=== PATIENT | female | born 1950 | race African-American/Black ===

== ENCOUNTER 2017-03-11 13:21 | Inpatient (IN) | payer OTHER, MEDICARE ==
[~2017-03-11] VITALS: Ht 165.1 cm; Wt 86.9 kg
[~2017-03-11 13:21] MED LIST: ASPI325T PO; ATOR80TA41 PO; CLOP75 PO; FLUT1INH INH; HYDR-3533 PO; LACT PO; LEVO.025 PO; METO50TA PO; TRAM50 PO; Z.0.WALKERFRONT
[2017-03-11 13:24] VITALS: BP 141/65; PULSE 98; RESP 12; TEMP 98.4; O2SAT 99
[2017-03-11 14:11] LABS: AUTOMATED NEUTROPHIL # 11.7 TH/MM3 (1.8-7.7); BASOPHIL # 0.1 TH/MM3 (0-0.2); BASOPHIL % 0.5 % (0.0-2.0); EOSINOPHIL # 0.2 TH/MM3 (0-0.4); EOSINOPHIL % 1.1 % (0.0-4.0); HEMATOCRIT 49.1 % (35.0-46.0); HEMO FLAGS DIFF FINAL; LYMPHOCYTE # 3.2 TH/MM3 (1.0-4.8); MEAN CELL VOLUME 70.1 FL (80.0-100.0); MEAN CORPUSCULAR HEMOGLOBIN 22.5 PG (27.0-34.0); MEAN CORPUSCULAR HGB CONC 32.1 % (32.0-36.0); MONO % 6.1 % (0.0-8.0); NEUT % 72.3 % (16.0-70.0); PLATELET COUNT 236 TH/MM3 (150-450); RED CELL DISTRIBUTION WIDTH 15.2 % (11.6-17.2); WHITE BLOOD COUNT 16.3 TH/MM3 (4.0-11.0)
--- NOTE | 2017-03-11 14:13 | RADRPT ---
EXAM DATE/TIME: 03/11/2017 14:01 [facility] COMPARISON: CHEST SINGLE AP, October 12, 2015, 12:45. INDICATIONS : Chest pain. Vomiting, cough and diarrhea. MEDICAL HISTORY : Cardiovascular disease SURGICAL HISTORY : Cardiac stents ENCOUNTER: Initial ACUITY: 2 days PAIN SCORE: 7/10 LOCATION: Bilateral chest FINDINGS: PA and lateral views of the chest demonstrate the lungs to be symmetrically aerated without evidence of mass, infiltrate or effusion. The cardiomediastinal contours are unremarkable. Osseous structure s are intact. CONCLUSION: No acute disease. Jorge Lama MD on March 11, 2017 at 14:11 Board Certified Radiologist. This report was verified electronically.
[2017-03-11 14:20] LABS: PROTHROMBIN TIME - PATIENT 11.5 SEC (9.8-11.6)
[2017-03-11 14:27] LABS: ANION GAP 11 MEQ/L (5-15); AST (GOT) 21 U/L (15-37); BICARBONATE 21.2 MEQ/L (21.0-32.0); BLOOD UREA NITROGEN 11 MG/DL (7-18); CHLORIDE 106 MEQ/L (98-107); GLOMERULAR FILTRATION RATE 32 ML/MIN (>89); MAGNESIUM 2.1 MG/DL (1.5-2.5); POTASSIUM 3.3 MEQ/L (3.5-5.1); SODIUM (NA) 138 MEQ/L (136-145)
[2017-03-11 14:30] LABS: ALKALINE PHOSPHATASE 101 U/L (45-117); ALT (GPT) 32 U/L (10-53); CREATINE KINASE 125 U/L (26-192); TOTAL BILIRUBIN ADULT 1.2 MG/DL (0.2-1.0)
[2017-03-11 15:00] LABS: CKMB 0.6 NG/ML (0.5-3.6)
[2017-03-11 15:13] VITALS: BP 89/50; PULSE 85; RESP 18; O2SAT 98
[2017-03-11] MEDS ORDERED: SODIUM CHLOR 0.9% 1000 ML INJ 1,000 ML IV SCH ×3 (15:17→16:40)
[2017-03-11] MEDS ORDERED: MORPHINE SULFATE 4 MG/ML INJ IV PUSH ONE (15:30)
[2017-03-11] MEDS ORDERED: ONDANSETRON HCL 4 MG/2 ML VIAL IVP ONE (15:30)
[2017-03-11] MEDS ORDERED: FAMOTIDINE 20 MG/2 ML VIAL IV PUSH ONE (15:45)
[2017-03-11] MEDS ORDERED: PANTOPRAZOLE SODIUM 40 MG VIAL IVP ONE (15:45)
--- NOTE | 2017-03-11 16:16 | PD ---
HPI Chief Complaint: Chest Pain Time Seen by Provider: 16:15 Travel History International Travel<30 days: No Contact w/Intl Traveler<30days: No Traveled to known affect area: No History of Present Illness HPI 66-year-old female that presents to the ED for evaluation of left-sided chest pain and upper epigastric pain as well as nausea vomiting and diarrhea. Per patient she's had this for about 2 days. Per patient he started yesterday with diarrhea. She states that she's never had like this before. She does have a history of cardiac disease including stent placement. Nausea and vomiting are causing the chest pain per patient. Per patient she's not been out to keep anything down. Per patient has diarrhea is liquidy. No blood from either end. She states the muscle pains in the epigastric area. She states that she has had a cholecystectomy. She denies any shortness of breath. She states having a headache. Some chills and sweats especially with vomiting. Allergy to penicillin. No history of falls. No urinary or bowel movement issues. PFSH Past Medical History Arthritis: Yes Asthma: Yes (WHEN SHE WAS YOUNGER) Cancer: No Cardiac Catheterization: Yes Cardiovascular Problems: Yes (2 SC's in 2009 & 2012) High Cholesterol: Yes Diabetes: No Diminished Hearing: No Genitourinary: No Hypertension: Yes Neurologic: Yes (lumbar back pain) Psychiatric: No Reproductive: No Respiratory: Yes Immunizations Current: Yes Pneumonia: Yes Thyroid Disease: Yes Triglycerides - High: Yes PNEUMOCCOCAL Vaccine (Year): 2 Menopausal: Yes Tubal Ligation: Yes Past Surgical History Abdominal Surgery: Yes (GALLBLADDER 2010) Cardiac Surgery: Yes (STENTS 2010) Cholecystectomy: Yes Coronary Stent: Yes (x 3) Other Surgery: No Social History Alcohol Use: No Tobacco Use: No Substance Use: No Allergies-Medications (Allergen,Severity, Reaction): Coded Allergies: Penicillin (Verified Allergy, Severe, RASH, 03/11/17) Reported Meds & Prescriptions Reported Meds & Active Scripts Active Reported Nitroglycerin SL (Nitroglycerin) 0.4 Mg Subl 0.4 Mg SL DIRECTED PRN ONE TABLET UNDER THE TONGUE NEEDED FOR CHEST PAIN, MAY REPEAT EVERY FIVE MINUTES FOR A TOTAL OF 3 DOSES OR CALL 911 IF NO RELIEF Atorvastatin (Atorvastatin Calcium) 80 Mg Tab 80 Mg PO HS [place] (Hydrocodone-Acetaminophen) 10-325 Mg Tab 1 Tab PO TID PRN Levothyroxine (Levothyroxine Sodium) 50 Mcg Tab 50 Mcg PO DAILY Metoprolol Tartrate 25 Mg Tab 25 Mg PO Q12HR Anoro Ellipta Inh (Umeclidinium/Vilanterol) 62.5-25 Mcg/Act Aero 1 Puff INH DAILY @ 1200 Lisinopril 20 Mg Tab 20 Mg PO BID Amlodipine (Amlodipine Besylate) 10 Mg Tab 10 Mg PO DAILY Review of Systems Except as stated in HPI: all other systems reviewed are Neg Physical Exam Narrative GENERAL: SKIN: Warm and dry. HEAD: Atraumatic. Normocephalic. EYES: Pupils equal and round. No scleral icterus. No injection or drainage. ENT: No nasal bleeding or discharge. Mucous membranes pink and moist. Tongue is midline. No uvula deviation. NECK: Trachea midline. No JVD. CARDIOVASCULAR: Regular rate and rhythm. No murmurs, S3, S4. RESPIRATORY: No accessory muscle use. Clear to auscultation. Breath sounds equal bilaterally. GASTROINTESTINAL: Abdomen soft, patient does have reproducible pain on the epigastric area especially on the left upper quadrant, nondistended. Hepatic and splenic margins not palpable. MUSCULOSKELETAL: Extremities without clubbing, cyanosis, or edema. No obvious deformities. Full range of motion of the upper and lower extremities bilaterally. 2+ pulses bilaterally. NEUROLOGICAL: Awake and alert. No obvious cranial nerve deficits. Motor grossly within normal limits. Five out of 5 muscle strength in the arms and legs. Normal speech. PSYCHIATRIC: Appropriate mood and affect; insight and judgment normal. Data Data Last Documented VS Vital Signs Date Time Temp Pulse Resp B/P Pulse Ox O2 Delivery O2 Flow Rate FiO2 03/11/17 17:19 16 03/11/17 16:30 74 126/56 97 Room Air 03/11/17 13:24 98.4 Orders Electrocardiogram (03/11/17 13:31) Ckmb (Isoenzyme) Profile (03/11/17 13:31) Complete Blood Count With Diff (03/11/17 13:31) Comprehensive Metabolic Panel (03/11/17 13:31) Magnesium (Mg) (03/11/17 13:31) Prothrombin Time / Inr (Pt) (03/11/17 13:31) Act Partial Throm Time (Ptt) (03/11/17 13:31) Troponin I (03/11/17 13:31) Chest, Pa & Lat (03/11/17 13:31) CKMB (03/11/17 13:45) CKMB% (03/11/17 13:45) Lipase (03/11/17 15:12) Lactic Acid (03/11/17 15:17) Iv Access Insert/Monitor (03/11/17 15:17) Ecg Monitoring (03/11/17 15:17) Oximetry (03/11/17 15:17) Morphine Inj (Morphine Inj) (03/11/17 15:30) Ondansetron Inj (Zofran Inj) (03/11/17 15:30) Sodium Chlor 0.9% 1000 Ml Inj (Ns 1000 M (03/11/17 15:17) Pantoprazole Inj (Protonix Inj) (03/11/17 15:45) Famotidine Inj (Pepcid Inj) (03/11/17 15:45) Ct Abd/Pel W Iv Contrast(Rout) (03/11/17 16:37) Sodium Chlor 0.9% 1000 Ml Inj (Ns 1000 M (03/11/17 16:37) Blood Culture (03/11/17 16:40) Chest, Single Ap (03/11/17 16:40) Sodium Chlor 0.9% 1000 Ml Inj (Ns 1000 M (03/11/17 16:40) Vancomycin Inj (Vancomycin Inj) (03/11/17 16:41) Aztreonam Inj (Azactam Inj) (03/11/17 16:41) Metronidazole 500 Mg Inj (Flagyl 500 Mg (03/11/17 16:41) Urinalysis - C+S If Indicated (03/11/17 17:08) Admit To Inpatient (03/11/17 ) Diet Npo Except Meds (03/11/17 Dinner) Vital Signs (Adult) VANESSA.Q4H (03/11/17 17:20) Activity Bed Rest With Brp (03/11/17 17:20) Admit Order (Ed Use Only) (03/11/17 17:22) Labs Laboratory Tests Test 03/11/17 03/11/17 13:45 15:31 White Blood Count 16.3 TH/MM3 Red Blood Count 7.00 MIL/MM3 Hemoglobin 15.7 GM/DL Hematocrit 49.1 % Mean Corpuscular Volume 70.1 FL Mean Corpuscular Hemoglobin 22.5 PG Mean Corpuscular Hemoglobin 32.1 % Concent Red Cell Distribution Width 15.2 % Platelet Count 236 TH/MM3 Mean Platelet Volume 9.1 FL Neutrophils (%) (Auto) 72.3 % Lymphocytes (%) (Auto) 20.0 % Monocytes (%) (Auto) 6.1 % Eosinophils (%) (Auto) 1.1 % Basophils (%) (Auto) 0.5 % Neutrophils # (Auto) 11.7 TH/MM3 Lymphocytes # (Auto) 3.2 TH/MM3 Monocytes # (Auto) 1.0 TH/MM3 Eosinophils # (Auto) 0.2 TH/MM3 Basophils # (Auto) 0.1 TH/MM3 CBC Comment DIFF FINAL Differential Comment Prothrombin Time 11.5 SEC Prothromb Time International 1.0 RATIO Ratio Activated Partial 22.0 SEC Thromboplast Time Sodium Level 138 MEQ/L Potassium Level 3.3 MEQ/L Chloride Level 106 MEQ/L Carbon Dioxide Level 21.2 MEQ/L Anion Gap 11 MEQ/L Blood Urea Nitrogen 11 MG/DL Creatinine 1.92 MG/DL Estimat Glomerular Filtration 32 ML/MIN Rate Random Glucose 125 MG/DL Calcium Level 10.0 MG/DL Magnesium Level 2.1 MG/DL Total Bilirubin 1.2 MG/DL Aspartate Amino Transf 21 U/L (AST/SGOT) Alanine Aminotransferase 32 U/L (ALT/SGPT) Alkaline Phosphatase 101 U/L Total Creatine Kinase 125 U/L Creatine Kinase MB 0.6 NG/ML Troponin I LESS THAN 0.02 NG/ML Total Protein 10.2 GM/DL Albumin 4.7 GM/DL Lipase 102 U/L Lactic Acid Level 3.3 mmol/L [facility] Medical Decision Making Medical Screen Exam Complete: Yes Emergency Medical Condition: Yes Medical Record Reviewed: Yes Interpretation(s) CBC & BMP Diagram 03/11/17 13:45 LFTS WNL UA negative Last Impressions Chest X-Ray 03/11/17 1331 Signed Impressions: Service Date/Time: Tuesday, March 11, 2017 14:01 - CONCLUSION: No acute disease. Jorge Lama MD lipase WNL EKG shows sinus rhythm with no sign of acute ischemia or arrhythmia read by me and attending. Troponin and CKMB negative Differential Diagnosis Chest pain versus atypical chest pain versus epigastric pain versus gastritis versus pancreatitis versus ACS versus nausea and vomited Narrative Course 66-year-old female that presents to the ED for evaluation of left-sided chest pain. Patient was properly examined and was found to have signs and symptoms consistent appears to be more likely epigastric abdominal pain. Labs and imaging were ordered. Labs and imaging here were essentially unremarkable except for elevated bowels account. Chest x-ray was negative for acute disease. Initial EKG was sinus rhythm with no sign of acute ischemia or arrhythmia. Patient was given pain medications and fluids as well as antiemetics. Imaging did show lactic acidosis. CT was ordered. My attending Dr. Small recommends admission for further evaluation and started patient treatment with antibiotics for prophylactic sepsis. This was discussed with the patient who is in agreement with plan. Case discussed with Dr. Rodriguez who agrees to admission. Sepsis Criteria SIRS Criteria (2 or more): Heart rate over 90, WBC > 91864, < 4000 or > 10% bands Sepsis Criteria (SIRS+source): Infect source susp/known Severe Sepsis (+one): Lactate >2 Diagnosis Primary Impression: Sepsis Qualified Code: A41.9 - Sepsis, due to unspecified organism Additional Impressions: Abdominal pain Qualified Code: R10.13 - Epigastric pain Nausea & vomiting Qualified Code: R11.2 - Non-intractable vomiting with nausea, unspecified vomiting type Admitting Information Admitting Physician Requests: Admit Vidal Steinberg Mar 11, 2017 16:16
[2017-03-11 16:30] VITALS: BP 126/56; PULSE 74; RESP 18; O2SAT 97
[2017-03-11] MEDS ORDERED: metroNIDAZOLE 500 MG INJ 100 ML IV STA (16:41)
[2017-03-11] MEDS ORDERED: AZTREONAM INJ 2,000 MG in SODIUM CHLORIDE 0.9% INJ 100 ML IV STA (16:41)
[2017-03-11] MEDS ORDERED: VANCOMYCIN INJ 1,000 MG in SODIUM CHLOR 0.9% 250 ML INJ 250 ML IV STA (16:41)
[2017-03-11] MEDS ORDERED: LISI-515 PO (16:48)
[2017-03-11] MEDS ORDERED: AMLO10TA2 PO (16:48)
[2017-03-11] MEDS ORDERED: UMEC1AER INH (16:48)
[2017-03-11] MEDS ORDERED: HYDR-3366 PO (16:50)
[2017-03-11] MEDS ORDERED: LEVO50TA4 PO (16:50)
[2017-03-11] MEDS ORDERED: METO25TA3 PO (16:50)
[2017-03-11] MEDS ORDERED: ATOR1TAB18 PO (16:50)
[2017-03-11] MEDS ORDERED: NITR1SUB3 SL (16:51)
--- NOTE | 2017-03-11 17:19 | RADRPT ---
EXAM DATE/TIME: 03/11/2017 16:42 [facility] COMPARISON: CHEST SINGLE AP, October 12, 2015, 12:45. INDICATIONS : Fever. Weakness. MEDICAL HISTORY : None. SURGICAL HISTORY : None. ENCOUNTER: Initial ACUITY: 1 day PAIN SCORE: 6/10 LOCATION: Bilateral chest FINDINGS: A single view of the chest demonstrates the lungs to be symmetrically with some atelectatic changes a ivana the left hemidiaphragm. Heart size is prominent but well compensated. CONCLUSION: 1. Minimal atelectatic changes in the left base. Lungs are otherwise clear. 2. Compensated cardiomegaly. David Reyes MD on March 11, 2017 at 17:15 Board Certified Radiologist. This report was verified electronically.
[2017-03-11] MEDS ORDERED: IODIXANOL 320 MG/ML 50 ML VIAL (for Rad CT) IV ONE (17:33)
--- NOTE | 2017-03-11 17:46 | RADRPT ---
EXAM DATE/TIME: 03/11/2017 17:07 [facility] COMPARISON: No previous studies available for comparison. INDICATIONS : Diffuse upper abdomen pain for one day. IV CONTRAST: 50 cc Visipaque (iodixanol) IV ORAL CONTRAST: No oral contrast ingested. RADIATION DOSE: 10.21 CTDIvol (mGy) MEDICAL HISTORY : Myocardial infarction. Hypertension. CAD SURGICAL HISTORY : Cholecystectomy. Tubal ligation.Coronary artery stent.Ulcer repair ENCOUNTER: Initial ACUITY: 1 day PAIN SCALE: 7/10 LOCATION: Right upper quadrant TECHNIQUE: Volumetric scanning of the abdomen and pelvis was performed. Using automated exposure control and ad justment of the mA and/or kV according to patient size, radiation dose was kept as low as reasonably achievable to obtain optimal diagnostic quality images. DICOM format image data is available electro nically for review and comparison. FINDINGS: LOWER LUNGS: Small pericardial effusion is present. No evidence of consolidating airspace disease. LIVER: Homogeneous density without lesion. The biliary tree is mildly prominent. The common bile measures 9 mm. Gallbladder has been removed. SPLEEN: Normal size without lesion. PANCREAS: Within normal limits. KIDNEYS: Normal in size and shape. There is no mass, stone or hydronephrosis. ADRENAL GLANDS: Within normal limits. VASCULAR: Calcified plaque is present throughout the infrarenal abdominal aorta and iliac vessels. There is no evidence of aneurysmal enlargement. BOWEL/MESENTERY: Mildly distended air-filled loops of small bowel are identified in the upper abdomen. The distal smal l bowel is not distended however an acute transition cannot be identified. Colon is unremarkable. ABDOMINAL WALL: Within normal limits. RETROPERITONEUM: There is no lymphadenopathy. BLADDER: No wall thickening or mass. REPRODUCTIVE: Within normal limits. INGUINAL: There is no lymphadenopathy or hernia. MUSCULOSKELETAL: Within normal limits for patient age. CONCLUSION: 1. Mild proximal small bowel ileus without specific evidence of obstructing process. 2. Small pericardial effusion. 3. Mild biliary prominence status post cholecystectomy; not unexpected. Daljit Lew MD on March 11, 2017 at 17:35 Board Certified Radiologist. This report was verified electronically.
--- NOTE | 2017-03-11 17:51 | PD ---
Physical Exam Narrative GENERAL: Well-nourished, well-developed patient. SKIN: Warm and dry. HEAD: Normocephalic and atraumatic. EYES: No injection or drainage. ENT: No nasal drainage noted. NECK: Supple, trachea midline. CARDIOVASCULAR: Regular rate and rhythm RESPIRATORY: No increased effort. No accessory muscle use. NEUROLOGICAL: Awake and alert. Motor and sensory grossly within normal limits. Normal speech. Data Data Last Documented VS Vital Signs Date Time Temp Pulse Resp B/P Pulse Ox O2 Delivery O2 Flow Rate FiO2 03/11/17 17:19 16 03/11/17 16:30 74 126/56 97 Room Air 03/11/17 13:24 98.4 Orders Electrocardiogram (03/11/17 13:31) Ckmb (Isoenzyme) Profile (03/11/17 13:31) Complete Blood Count With Diff (03/11/17 13:31) Comprehensive Metabolic Panel (03/11/17 13:31) Magnesium (Mg) (03/11/17 13:31) Prothrombin Time / Inr (Pt) (03/11/17 13:31) Act Partial Throm Time (Ptt) (03/11/17 13:31) Troponin I (03/11/17 13:31) Chest, Pa & Lat (03/11/17 13:31) CKMB (03/11/17 13:45) CKMB% (03/11/17 13:45) Lipase (03/11/17 15:12) Lactic Acid (03/11/17 15:17) Iv Access Insert/Monitor (03/11/17 15:17) Ecg Monitoring (03/11/17 15:17) Oximetry (03/11/17 15:17) Morphine Inj (Morphine Inj) (03/11/17 15:30) Ondansetron Inj (Zofran Inj) (03/11/17 15:30) Sodium Chlor 0.9% 1000 Ml Inj (Ns 1000 M (03/11/17 15:17) Pantoprazole Inj (Protonix Inj) (03/11/17 15:45) Famotidine Inj (Pepcid Inj) (03/11/17 15:45) Ct Abd/Pel W Iv Contrast(Rout) (03/11/17 16:37) Sodium Chlor 0.9% 1000 Ml Inj (Ns 1000 M (03/11/17 16:37) Blood Culture (03/11/17 16:40) Chest, Single Ap (03/11/17 16:40) Sodium Chlor 0.9% 1000 Ml Inj (Ns 1000 M (03/11/17 16:40) Vancomycin Inj (Vancomycin Inj) (03/11/17 16:41) Aztreonam Inj (Azactam Inj) (03/11/17 16:41) Metronidazole 500 Mg Inj (Flagyl 500 Mg (03/11/17 16:41) Urinalysis - C+S If Indicated (03/11/17 17:08) Admit To Inpatient (03/11/17 ) Diet Npo Except Meds (03/11/17 Dinner) Vital Signs (Adult) VANESSA.Q4H (03/11/17 17:20) Activity Bed Rest With Brp (03/11/17 17:20) Admit Order (Ed Use Only) (03/11/17 17:22) Labs Laboratory Tests Test 03/11/17 03/11/17 13:45 15:31 White Blood Count 16.3 TH/MM3 Red Blood Count 7.00 MIL/MM3 Hemoglobin 15.7 GM/DL Hematocrit 49.1 % Mean Corpuscular Volume 70.1 FL Mean Corpuscular Hemoglobin 22.5 PG Mean Corpuscular Hemoglobin 32.1 % Concent Red Cell Distribution Width 15.2 % Platelet Count 236 TH/MM3 Mean Platelet Volume 9.1 FL Neutrophils (%) (Auto) 72.3 % Lymphocytes (%) (Auto) 20.0 % Monocytes (%) (Auto) 6.1 % Eosinophils (%) (Auto) 1.1 % Basophils (%) (Auto) 0.5 % Neutrophils # (Auto) 11.7 TH/MM3 Lymphocytes # (Auto) 3.2 TH/MM3 Monocytes # (Auto) 1.0 TH/MM3 Eosinophils # (Auto) 0.2 TH/MM3 Basophils # (Auto) 0.1 TH/MM3 CBC Comment DIFF FINAL Differential Comment Prothrombin Time 11.5 SEC Prothromb Time International 1.0 RATIO Ratio Activated Partial 22.0 SEC Thromboplast Time Sodium Level 138 MEQ/L Potassium Level 3.3 MEQ/L Chloride Level 106 MEQ/L Carbon Dioxide Level 21.2 MEQ/L Anion Gap 11 MEQ/L Blood Urea Nitrogen 11 MG/DL Creatinine 1.92 MG/DL Estimat Glomerular Filtration 32 ML/MIN Rate Random Glucose 125 MG/DL Calcium Level 10.0 MG/DL Magnesium Level 2.1 MG/DL Total Bilirubin 1.2 MG/DL Aspartate Amino Transf 21 U/L (AST/SGOT) Alanine Aminotransferase 32 U/L (ALT/SGPT) Alkaline Phosphatase 101 U/L Total Creatine Kinase 125 U/L Creatine Kinase MB 0.6 NG/ML Troponin I LESS THAN 0.02 NG/ML Total Protein 10.2 GM/DL Albumin 4.7 GM/DL Lipase 102 U/L Lactic Acid Level 3.3 mmol/L [facility] Supervised Visit with KHALIDA: Yes Interpretation(s) CBC & BMP Diagram 03/11/17 13:45 Last 24 hours Impressions Chest X-Ray 03/11/17 1640 Signed Impressions: Service Date/Time: Saturday, March 11, 2017 16:42 - CONCLUSION: 1. Minimal atelectatic changes in the left base. Lungs are otherwise clear. 2. Compensated cardiomegaly. David Reyes MD Chest X-Ray 03/11/17 1331 Signed Impressions: Service Date/Time: Saturday, March 11, 2017 14:01 - CONCLUSION: No acute disease. Jorge Lama MD Narrative Course I, Dr. small, have reviewed the advance practice practitioner's documentation and am in agreement, met with the patient face to face, made the diagnosis, and the medical decision making was done by me. *My assessment and Findings: 66-year-old female presents with abdominal pain with vomiting and diarrhea. Workup shows elevated white count and lactate. She was given broad-spectrum antibiotic coverage and she will be watched in the hospital. Patient agrees to plan of care Sepsis Criteria SIRS Criteria (2 or more): WBC > 93895, < 4000 or > 10% bands Sepsis Criteria (SIRS+source): Infect source susp/known Severe Sepsis (+one): Lactate >2 Criteria Outcome: Meets severe sepsis criteria Diagnosis Primary Impression: Sepsis Qualified Code: A41.9 - Sepsis, due to unspecified organism Additional Impressions: Nausea & vomiting Qualified Code: R11.2 - Non-intractable vomiting with nausea, unspecified vomiting type Abdominal pain Qualified Code: R10.13 - Epigastric pain Admitting Information Admitting Physician Requests: Admit Ericka Small MD Mar 11, 2017 17:51
[2017-03-11 18:30] LABS: BLOOD, URINE TRACE (NEG); GLUCOSE,URINE NEG (NEG); HYALINE CAST, URINE 20 /lpf (RARE); KETONE, URINE NEG (NEG); MUCUS URINE FEW /lpf (OCC); NITRITE,URINE NEG (NEG); PH, URINE 5.5 (5.0-8.5); SQUAMOUS EPITHELIAL CELL URINE 3 /hpf (0-5); TRANSITIONAL EPI CELLS, URINE 1 /hpf; URINE COLOR DARK-YELLOW (YELLW/STRAW)
[2017-03-11] MEDS ORDERED: GLUCAGON 1 MG/ML VIAL OTHER PRN (18:45)
[2017-03-11] MEDS ORDERED: DEXTROSE 50% IN WATER 50 ML VIAL(D50) IV PRN (18:45)
--- NOTE | 2017-03-11 18:45 | HHI.HP ---
HPI Service [facility] Primary Care Physician Unknown Admission Diagnosis acute abdominal pain, sepsis, N/V Diagnoses: Chief Complaint: Nausea, vomiting, diarrhea Travel History International Travel<30 Days: No Contact w/Intl Traveler <30 Da: No Traveled to Known Affected Are: No History of Present Illness Written by Raúl Almeida, acting as scribe for Dr. Pastrana on 03/11/17 at 18:21. 66-year-old female with a past medical history of CAD, HTN, HLD, hypothyroidism , DM, LUIS, spinal stenosis who presented for nausea, vomiting, and diarrhea. Patient states that for the past 5 days she's been having diarrhea. She states the diarrhea is significantly worse 2 days ago. She's had more than 10 episodes of diarrhea yesterday. She states that she also been having coughing where she was coughing up some. She states the coughing progressed to vomiting 2 days ago. The past 2 days she's been having epigastric pain. When asked if she has any chest pain, she states she is having upper abdominal pain below both of her breasts, denies any specific chest pain or shortness of breath. The patient states that today she felt weak like she was going to pass out. She 's been having decreased urine output. She feels like some of her symptoms may be related to it being hot outside and her having no air conditioning. Patient' s abdominal pain is worse whenever she coughs. She has been having hand cramping. She has been having decreased urine output. The patient states her nausea is currently feeling improved after receiving medication in the ED. Review of Systems Except as stated in HPI: all other systems reviewed are Neg Past Family Social History Past Medical History Coronary artery disease Hypertension Hyperlipidemia Hypothyroidism Spinal stenosis Iron deficiency COPD Recently diagnosed diabetes mellitus, off medications currently Past Surgical History Cholecystectomy Stent placement 2 Tubal ligation Reported Medications Nitroglycerin SL (Nitroglycerin) 0.4 Mg Subl 0.4 Mg SL DIRECTED PRN ONE TABLET UNDER THE TONGUE NEEDED FOR CHEST PAIN, MAY REPEAT EVERY FIVE MINUTES FOR A TOTAL OF 3 DOSES OR CALL 911 IF NO RELIEF Atorvastatin (Atorvastatin Calcium) 80 Mg Tab 80 Mg PO HS [place] (Hydrocodone-Acetaminophen) 10-325 Mg Tab 1 Tab PO TID PRN Levothyroxine (Levothyroxine Sodium) 50 Mcg Tab 50 Mcg PO DAILY Metoprolol Tartrate 25 Mg Tab 25 Mg PO Q12HR Anoro Ellipta Inh (Umeclidinium/Vilanterol) 62.5-25 Mcg/Act Aero 1 Puff INH DAILY @ 1200 Lisinopril 20 Mg Tab 20 Mg PO BID Amlodipine (Amlodipine Besylate) 10 Mg Tab 10 Mg PO DAILY Allergies: Coded Allergies: Penicillin (Verified Allergy, Severe, RASH, 03/11/17) Family History Followed of emphysema Mother had throat/esophageal cancer Sister passed from sarcoidosis Daughter of breast cancer Social History Tobacco use Denies any alcohol or drug use Physical Exam Vital Signs Vital Signs Date Time Temp Pulse Resp B/P Pulse Ox O2 Delivery O2 Flow Rate FiO2 03/11/17 17:19 16 03/11/17 16:30 74 18 126/56 97 Room Air 03/11/17 15:16 86 18 98 Room Air 03/11/17 15:13 85 18 89/50 98 Room Air 03/11/17 13:24 98.4 98 12 141/65 99 Physical Exam GENERAL: Well-developed well-nourished. In no acute distress. SKIN: Warm and dry. No lesions noted. HEENT: Normocephalic. Pupils equal and round. Mucous membranes pink and moist. TMs clear. CARDIOVASCULAR: Regular rate and rhythm. No murmur appreciated. RESPIRATORY: No accessory muscle use. Clear to auscultation. Breath sounds equal bilaterally. GASTROINTESTINAL: Abdomen soft, epigastric TTP, nondistended. Bowel sounds x4. MUSCULOSKELETAL: No obvious deformities. No clubbing or cyanosis. No edema. NEUROLOGICAL: Awake and alert. No focal neurological deficits. Moves upper and lower extremities spontaneously. Normal speech. PSYCHIATRIC: Appropriate mood and affect; insight and judgment normal. Laboratory Laboratory Tests Test 03/11/17 03/11/17 13:45 15:31 White Blood Count 16.3 Red Blood Count 7.00 Hemoglobin 15.7 Hematocrit 49.1 Mean Corpuscular Volume 70.1 Mean Corpuscular Hemoglobin 22.5 Mean Corpuscular Hemoglobin 32.1 Concent Red Cell Distribution Width 15.2 Platelet Count 236 Mean Platelet Volume 9.1 Neutrophils (%) (Auto) 72.3 Lymphocytes (%) (Auto) 20.0 Monocytes (%) (Auto) 6.1 Eosinophils (%) (Auto) 1.1 Basophils (%) (Auto) 0.5 Neutrophils # (Auto) 11.7 Lymphocytes # (Auto) 3.2 Monocytes # (Auto) 1.0 Eosinophils # (Auto) 0.2 Basophils # (Auto) 0.1 CBC Comment DIFF FINAL Differential Comment Prothrombin Time 11.5 Prothromb Time International 1.0 Ratio Activated Partial 22.0 Thromboplast Time Sodium Level 138 Potassium Level 3.3 Chloride Level 106 Carbon Dioxide Level 21.2 Anion Gap 11 Blood Urea Nitrogen 11 Creatinine 1.92 Estimat Glomerular Filtration 32 Rate Random Glucose 125 Calcium Level 10.0 Magnesium Level 2.1 Total Bilirubin 1.2 Aspartate Amino Transf 21 (AST/SGOT) Alanine Aminotransferase 32 (ALT/SGPT) Alkaline Phosphatase 101 Total Creatine Kinase 125 Creatine Kinase MB 0.6 Troponin I LESS THAN 0.02 Total Protein 10.2 Albumin 4.7 Lipase 102 Lactic Acid Level 3.3 Date/Time Procedure Status Source Growth 03/11/17 17:15 Aerobic Blood Culture Received Blood Peripheral Pending 03/11/17 17:15 Anaerobic Blood Culture Received Blood Peripheral Pending Result Diagram: 03/11/17 1345 03/11/17 1345 Imaging Last Impressions Chest X-Ray 03/11/17 1640 Signed Impressions: Service Date/Time: Saturday, March 11, 2017 16:42 - CONCLUSION: 1. Minimal atelectatic changes in the left base. Lungs are otherwise clear. 2. Compensated cardiomegaly. David Reyes MD Abdomen/Pelvis CT 03/11/17 1637 Signed Impressions: Service Date/Time: Saturday, March 11, 2017 17:07 - CONCLUSION: 1. Mild proximal small bowel ileus without specific evidence of obstructing process. 2. Small pericardial effusion. 3. Mild biliary prominence status post cholecystectomy; not unexpected. Daljit Lew MD Assessment and Plan Assessment and Plan 66-year-old female with a past medical history of CAD, HTN, HLD, hypothyroidism , DM, LUIS, spinal stenosis who presented for nausea, vomiting, and diarrhea Gastroenteritis/ileus: Diarrhea 5 days. Nausea and vomiting 2 days. Reviewed: Abdominal and pelvis CT showed mild proximal small bowel ileus without evidence of obstruction. Lipase within normal limits. Labs with signs of dehydration. Afebrile. -IVF -Clear liquid diet for now -Flagyl -Check stool studies -UA pending -IV PPI -Limit narcotics SIRS: Likely secondary to gastroenteritis as above. Leukocytosis, possibly due to hemoconcentration. Lactic acid 3.3, possibly from dehydration. -IVF and antibiotics as above DAE: Creatinine 1.92, previously 1.1 on 10/14/15. Secondary to dehydration from the above. -IVF and follow-up BMP -Hold lisinopril Diabetes mellitus: The patient states she recently had outpatient hemoglobin A1c of 6.5. She has been referred to diabetic education as outpatient. -Monitor Accu-Cheks. Sliding scale insulin if needed. Other chronic medical conditions include HTN, HLD, hypothyroidism, COPD: Stable at this time and will continue home medications as indicated. DVT prophylaxis: SCDs Discussed Condition With Patient with SO at bedside Attending Statement This note was transcribed by nury Almeida. I, Dr. Bunny Pastrana personally performed the history, physical exam, and medical decision making; and confirmed the accuracy of the information in the transcribed note. Authenticated by Dr. Bunny Pastrana on 03/11/17 at 18:47. Raúl Almeida Mar 11, 2017 18:45 Bunny Pastrana MD Mar 11, 2017 18:47
[2017-03-11 18:50] LABS: COMMENT (UR) CULTURE INDICATED; CULTURE IF INDICATED CULTURE INDICATED
[2017-03-11 19:19] VITALS: O2SAT 99
[2017-03-11 20:00] VITALS: BP 125/59; PULSE 64; RESP 16; TEMP 97; O2SAT 98
[2017-03-11] MEDS: INSULIN ASPART SUPPLEMENTAL SCALE SQ SCH (21:00)
[2017-03-11] MEDS: ATORVASTATIN 80 MG TAB PO SCH (21:29)
[2017-03-11] MEDS: NS + KCL 20 MEQ INJ 1,000 ML IV SCH (21:29)
[2017-03-11] MEDS: METOPROLOL TARTRATE 25 MG TAB PO SCH (21:30)
[2017-03-12] VITALS: BP 112/58; PULSE 66; RESP 16; TEMP 97.4; O2SAT 96
[2017-03-12] MEDS: UMECLIDINIUM 62.5 MCG/VILANTEROL 25 MCG INHALER INH SCH ×3 (00:46→19:44)
[2017-03-12] MEDS: metroNIDAZOLE 500 MG INJ 100 ML IV SCH ×3 (00:46→16:41)
[2017-03-12] MEDS: PANTOPRAZOLE SODIUM 40 MG VIAL IV PUSH SCH ×2 (05:01→16:41)
[2017-03-12] MEDS: LEVOTHYROXINE SODIUM 50 MCG TAB PO SCH (05:02)
[2017-03-12] MEDS: NS + KCL 20 MEQ INJ 1,000 ML IV SCH ×3 (05:02→22:50)
[2017-03-12] MEDS: INSULIN ASPART SUPPLEMENTAL SCALE SQ SCH ×4 (05:10→19:42)
[2017-03-12] MEDS ORDERED: MORPHINE SULFATE 4 MG/ML INJ IV PUSH ONE (06:30)
[2017-03-12 08:00] VITALS: BP 133/70; PULSE 77; RESP 17; TEMP 97.6; O2SAT 97
[2017-03-12] MEDS: METOPROLOL TARTRATE 25 MG TAB PO SCH ×2 (08:45→19:40)
--- NOTE | 2017-03-12 11:51 | HHI.PR ---
Subjective Remarks Follow up abdominal pain. Patient reports some diarrhea this morning. Denies nausea/vomiting. Abdominal pain worsened this morning and improved with morphine. Objective Vitals Vital Signs Date Time Temp Pulse Resp B/P Pulse Ox O2 Delivery O2 Flow Rate FiO2 03/12/17 08:00 97.6 77 17 133/70 97 03/12/17 00:00 97.4 66 16 112/58 96 03/11/17 20:00 97.0 64 16 125/59 98 03/11/17 19:19 99 Room Air 03/11/17 17:19 16 03/11/17 16:30 74 18 126/56 97 Room Air 03/11/17 15:16 86 18 98 Room Air 03/11/17 15:13 85 18 89/50 98 Room Air 03/11/17 13:24 98.4 98 12 141/65 99 I/O 03/11/17 03/11/17 03/11/17 03/12/17 03/12/17 03/12/17 06:59 14:59 22:59 06:59 14:59 22:59 Intake Total 889 ml Balance 889 ml Intake Oral 240 ml IV Total 649 ml # Voids 2 # Bowel Movements 1 Result Diagram: 03/11/17 1345 03/11/17 1345 Imaging Last Impressions Chest X-Ray 03/11/17 1640 Signed Impressions: Service Date/Time: Saturday, March 11, 2017 16:42 - CONCLUSION: 1. Minimal atelectatic changes in the left base. Lungs are otherwise clear. 2. Compensated cardiomegaly. David Reyes MD Abdomen/Pelvis CT 03/11/17 1637 Signed Impressions: Service Date/Time: Saturday, March 11, 2017 17:07 - CONCLUSION: 1. Mild proximal small bowel ileus without specific evidence of obstructing process. 2. Small pericardial effusion. 3. Mild biliary prominence status post cholecystectomy; not unexpected. Daljit Lew MD Objective Remarks General: No acute distress. Heart: Regular rate and rhythm. No murmur. Lungs: Clear to auscultation bilaterally. No wheezes, rales, or rhonchi. Breathing is nonlabored. Abdomen: Soft, tender to palpation in the midepigastric region without rebound or guarding, nondistended. Extremities: No lower extremity edema. Psych: Alert and oriented. Procedures None Urinary Catheter: No Vascular Central Line Catheter: No A/P Problem List: (1) Nausea & vomiting ICD Code: R11.2 Status: Acute (2) Abdominal pain ICD Code: R10.9 Status: Acute (3) DAE (acute kidney injury) ICD Code: N17.9 Status: Acute (4) HTN (hypertension) ICD Code: I10 Status: Acute (5) SIRS (systemic inflammatory response syndrome) ICD Code: R65.10 Status: Acute (6) Diabetes mellitus ICD Code: E11.9 Status: Chronic Assessment and Plan 1. Abdominal pain, diarrhea: Imaging shows ileus. Nausea and vomiting have improved. Continue IV fluids. Clear liquid diet. Continue Flagyl. Consult gastroenterology. 2. SIRS: WBCs are elevated. Lactic acid is elevated. 3. Acute kidney injury: Continue IV fluids. Monitor labs. Lisinopril on hold. 4. Diabetes mellitus: Newly diagnosed as outpatient. Reported hemoglobin A1c of 6.5 recently. Monitor Accu-Cheks and cover with sliding scale insulin. 5. Hypertension: Stable. Continue home medications. 6. Hypothyroidism: Continue levothyroxine. 7. DVT prophylaxis: SCDs. Problem Qualifiers (1) Nausea & vomiting: Qualified Code: R11.2 - Non-intractable vomiting with nausea, unspecified vomiting type (2) Abdominal pain: Qualified Code: R10.13 - Epigastric pain Bunny Pastrana MD Mar 12, 2017 11:51
[2017-03-12 12:00] VITALS: BP 130/67; PULSE 63; RESP 17; TEMP 98.4; O2SAT 97
[2017-03-12] MEDS: ONDANSETRON HCL 4 MG/2 ML VIAL IV PUSH PRN (13:48)
[2017-03-12 13:53] LABS: AUTOMATED NEUTROPHIL # 5.8 TH/MM3 (1.8-7.7); BASOPHIL # 0.1 TH/MM3 (0-0.2); BASOPHIL % 0.6 % (0.0-2.0); EOSINOPHIL # 0.3 TH/MM3 (0-0.4); EOSINOPHIL % 2.4 % (0.0-4.0); HEMATOCRIT 38.9 % (35.0-46.0); HEMO FLAGS DIFF FINAL; LYMPH % 33.8 % (9.0-44.0); LYMPHOCYTE # 3.6 TH/MM3 (1.0-4.8); MEAN CELL VOLUME 70.9 FL (80.0-100.0); MEAN CORPUSCULAR HGB CONC 31.1 % (32.0-36.0); MONO % 8.5 % (0.0-8.0); NEUT % 54.7 % (16.0-70.0); PLATELET COUNT 214 TH/MM3 (150-450); RED BLOOD COUNT 5.48 MIL/MM3 (4.00-5.30); RED CELL DISTRIBUTION WIDTH 15.2 % (11.6-17.2); WHITE BLOOD COUNT 10.7 TH/MM3 (4.0-11.0)
[2017-03-12] MEDS: MORPHINE SULFATE 4 MG/ML INJ IV PUSH PRN ×3 (13:53→22:51)
[2017-03-12 14:23] LABS: BICARBONATE 24.6 MEQ/L (21.0-32.0)
[2017-03-12 14:42] LABS: POTASSIUM 3.1 MEQ/L (3.5-5.1)
[2017-03-12 16:00] VITALS: BP 148/68; PULSE 72; RESP 16; TEMP 98.2; O2SAT 93
--- NOTE | 2017-03-12 17:57 | EKG ---
Date Performed: 03/11/2017 Time Performed: 13:34:43 PTAGE: 66 years EKG: Sinus rhythm POSSIBLE LEFT ATRIAL ENLARGEMENT NONSPECIFIC T-WAVE ABNORMALITY Clinical correlation is recommended BORDERLINE ECG PREVIOUS TRACING : 10/12/2015 09.52 DOCTOR: Julito Ojeda Interpretating Date/Time 03/12/2017 17:55:43
[2017-03-12] MEDS: ATORVASTATIN 80 MG TAB PO SCH (19:40)
[2017-03-12 20:00] VITALS: BP 138/65; PULSE 68; RESP 18; TEMP 96.6; O2SAT 97
--- NOTE | 2017-03-12 20:56 | MB ---
cc: PORSCHE REILLY M.D. DATE OF CONSULTATION 03/12/17 DATE OF 1950 REASON FOR REFERRAL Abdominal pain, nausea, vomiting. HISTORY OF PRESENT ILLNESS Thank you for consultation. A pleasant 64-year-old -[place] lady who has multiple medical problems, was doing well until about 24-48 hours when she started having significant abdominal cramping with nausea and vomiting and diarrhea. The patient stated that the diarrhea started about 5 days but the cramping got worse with worsening diarrhea in the last 24 to 48 hours. She had a almost 10 episodes of diarrhea yesterday accompanied with cramping throughout the abdomen and vomiting a few times. No hematemesis. No rectal bleeding. She denied any similar history except when she had the flu many years ago. She is not sure if she had an upper endoscopy or colonoscopy recently but she thinks she had it a few years back. PAST MEDICAL HISTORY Significant for iron deficiency, COPD, diabetes, spinal stenosis, hypertension, hyperlipidemia, hypothyroidism, coronary artery disease. REVIEW OF SYSTEMS All 12-point negative except HPI. MEDICATIONS Reviewed in the chart. ALLERGIES CODEINE. FAMILY HISTORY Significant for esophageal cancer, emphysema, sarcoidosis, breast cancer. SOCIAL HISTORY No drug or alcohol. She smokes occasionally on a daily basis. PAST SURGICAL HISTORY Significant for cholecystectomy. Cardiac stent placement. Tubal ligation. PHYSICAL EXAMINATION GENERAL: Alert, oriented, no acute distress. VITAL SIGNS: Stable. HEENT: Pupils are round, reactive to light at this time. CARDIAC: Regular rate and rhythm. No murmur or gallop. ABDOMEN: Soft, nondistended. Positive bowel sounds. EXTREMITIES: No edema, clubbing or cyanosis. NEUROLOGICALLY: Intact. PSYCHOLOGICALLY: Appropriate. LABORATORY DATA White count 10.7, yesterday was 16.3. Hemoglobin 12.1 down from 15.7. Platelet 214. Dictation went silent MD MICHAEL Gomez/ROCIO 7:49 PM 8:45 PM
--- NOTE | 2017-03-12 21:04 | MB ---
cc: PORSCHE REILLY MD DATE OF CONSULTATION 03/12/17 1950 REASON FOR REFERRAL Nausea, vomiting, diarrhea. HISTORY OF PRESENT ILLNESS Thank you for the consultation. A 66-year-old lady who came with a history of 45 days of diarrhea. The patient has abdominal cramping that got worse in the last 24-48 hours accompanied with a few episodes of nausea and vomiting. The diarrhea was severe in the last two days where she had about 10 bowel movements yesterday before she came. The patient also complained of diffuse cramping in the upper abdomen and also in the mid epigastric area. The patient denied any similar problem, except when she had gastroenteritis many years ago. She thinks she had a colonoscopy done but does not remember how long ago. The patient denied any hematemesis, no hematochezia and her symptoms seem to be subsiding since she was started on antibiotic. PAST SURGICAL HISTORY 1. Cholecystectomy. 2. Stent placement x2. 3. Tubal ligation. MEDICATIONS Reviewed in the chart. PAST MEDICAL HISTORY 1. Hypertension, 2. Hypothyroidism, 3. Hyperlipidemia, 4. Spinal stenosis. 5. History of iron deficiency anemia, 6. COPD 7. Coronary artery disease. FAMILY HISTORY Significant for emphysema, throat and esophageal cancer, sarcoidosis, breast cancer. SOCIAL HISTORY Positive for tobacco, no alcohol or drugs. ALLERGIES PENICILLIN REVIEW OF SYSTEMS All 12-point negative except HPI. PHYSICAL EXAMINATION GENERAL: Alert, oriented, in no acute distress. VITAL SIGNS: Stable. HEENT: Pupils are round, reactive to light. NECK: Supple. CHEST: Clear to auscultation and percussion CARDIAC: Regular rate and rhythm. ABDOMEN: Soft, nondistended. Positive bowel sounds. Mild discomfort in the mid epigastric area. EXTREMITIES: No edema, clubbing or cyanosis. NEUROLOGIC: Neurologically intact. PSYCHIATRIC: Psychologically appropriate. LABORATORY DATA White count 10.7, down from 16.3, hemoglobin 12.1, platelet 214, INR 1.0. Liver function tests normal except total bilirubin of 1.2. UA showed hazy color and trace of blood. IMAGING STUDIES CT scan - some mild dilation of the bowel, possible ileus and absent gallbladder. ASSESSMENT/PLAN A 66-year-old lady who has abdominal pain, nausea, vomiting, diarrhea, acute onset in the last few days consistent with gastroenteritis. She denied any bleeding. No other complaint at this time. Her hemoglobin dropped a little bit. most likely dilutional. White count improved significantly. RECOMMENDATIONS 1. Continue antibiotic 2. Continue supportive care. 3. If she continues to have any issues then she will need upper endoscopy and possible colonoscopy as an outpatient after we know what the last colonoscopy was done. MD MICHAEL Gomez/ /7:57 PM /8:50 PM
[2017-03-13] VITALS: BP 136/63; PULSE 63; RESP 18; TEMP 98; O2SAT 95
[2017-03-13] MEDS: metroNIDAZOLE 500 MG INJ 100 ML IV SCH ×3 (02:03→17:54)
[2017-03-13] MEDS: LEVOTHYROXINE SODIUM 50 MCG TAB PO SCH (05:47)
[2017-03-13] MEDS: PANTOPRAZOLE SODIUM 40 MG VIAL IV PUSH SCH ×2 (05:48→16:06)
[2017-03-13] MEDS: MORPHINE SULFATE 4 MG/ML INJ IV PUSH PRN ×4 (05:48→21:35)
[2017-03-13] MEDS: INSULIN ASPART SUPPLEMENTAL SCALE SQ SCH ×4 (05:53→20:35)
[2017-03-13 06:28] LABS: BASOPHIL # 0.1 TH/MM3 (0-0.2); BASOPHIL % 0.4 % (0.0-2.0); EOSINOPHIL # 0.3 TH/MM3 (0-0.4); EOSINOPHIL % 1.6 % (0.0-4.0); HEMATOCRIT 38.7 % (35.0-46.0); HEMO FLAGS DIFF FINAL; LYMPHOCYTE # 2.9 TH/MM3 (1.0-4.8); MEAN CELL VOLUME 68.9 FL (80.0-100.0); MEAN CORPUSCULAR HEMOGLOBIN 21.6 PG (27.0-34.0); MEAN CORPUSCULAR HGB CONC 31.3 % (32.0-36.0); MONO % 6.1 % (0.0-8.0); NEUT % 73.9 % (16.0-70.0); PLATELET COUNT 223 TH/MM3 (150-450); RED BLOOD COUNT 5.61 MIL/MM3 (4.00-5.30); RED CELL DISTRIBUTION WIDTH 15.1 % (11.6-17.2); WHITE BLOOD COUNT 16.3 TH/MM3 (4.0-11.0)
[2017-03-13 07:05] LABS: BICARBONATE 21.3 MEQ/L (21.0-32.0)
[2017-03-13 07:09] LABS: POTASSIUM 2.9 MEQ/L (3.5-5.1)
[2017-03-13 08:00] VITALS: BP 138/72; PULSE 71; RESP 16; TEMP 98.7; O2SAT 94
[2017-03-13] MEDS: UMECLIDINIUM 62.5 MCG/VILANTEROL 25 MCG INHALER INH SCH ×2 (08:07→20:35)
[2017-03-13] MEDS: METOPROLOL TARTRATE 25 MG TAB PO SCH ×2 (08:07→20:35)
[2017-03-13 09:12] LABS: C. DIFF EPI 027 PRESUMPTIVE NEGATIVE (NEGATIVE); C. DIFF TOXIN PCR NEGATIVE (NEGATIVE)
[2017-03-13] MEDS: POTASSIUM CHLOR 20 MEQ PREMIX 100 ML IV SCH ×2 (09:23→14:38)
[2017-03-13 12:00] VITALS: BP 117/59; PULSE 68; RESP 16; TEMP 99; O2SAT 100
[2017-03-13] MEDS: NS + KCL 20 MEQ INJ 1,000 ML IV SCH ×2 (12:00→20:37)
--- NOTE | 2017-03-13 14:46 | HHI.PR ---
Subjective Remarks Follow up abdominal pain. Patient states that she had worse pain this morning, but it has improved this afternoon. She has not tried eating anything. Objective Vitals Vital Signs Date Time Temp Pulse Resp B/P Pulse Ox O2 Delivery O2 Flow Rate FiO2 03/13/17 00:00 98.0 63 18 136/63 95 03/12/17 20:00 96.6 68 18 138/65 97 03/12/17 16:00 98.2 72 16 148/68 93 I/O 03/12/17 03/12/17 03/12/17 03/13/17 03/13/17 03/13/17 07:00 15:00 23:00 07:00 15:00 23:00 Intake Total 889 ml 8 ml 844 ml 800 ml Balance 889 ml 8 ml 844 ml 800 ml Intake Oral 240 ml 340 ml IV Total 649 ml 8 ml 504 ml 800 ml # Voids 2 6 # Bowel Movements 1 4 Result Diagram: 03/13/17 0600 03/13/17 0600 Imaging Last Impressions Chest X-Ray 03/11/17 1640 Signed Impressions: Service Date/Time: Saturday, March 11, 2017 16:42 - CONCLUSION: 1. Minimal atelectatic changes in the left base. Lungs are otherwise clear. 2. Compensated cardiomegaly. David Reyes MD Abdomen/Pelvis CT 03/11/17 1637 Signed Impressions: Service Date/Time: Saturday, March 11, 2017 17:07 - CONCLUSION: 1. Mild proximal small bowel ileus without specific evidence of obstructing process. 2. Small pericardial effusion. 3. Mild biliary prominence status post cholecystectomy; not unexpected. Daljit Lew MD Objective Remarks General: No acute distress. Heart: Regular rate and rhythm. No murmur. Lungs: Clear to auscultation bilaterally. No wheezes, rales, or rhonchi. Breathing is nonlabored. Abdomen: Soft, tender to palpation in the midepigastric region without rebound or guarding, nondistended. Extremities: No lower extremity edema. Psych: Alert and oriented. Procedures None Urinary Catheter: No Vascular Central Line Catheter: No A/P Problem List: (1) Nausea & vomiting ICD Code: R11.2 Status: Acute (2) Abdominal pain ICD Code: R10.9 Status: Acute (3) DAE (acute kidney injury) ICD Code: N17.9 Status: Acute (4) HTN (hypertension) ICD Code: I10 Status: Acute (5) SIRS (systemic inflammatory response syndrome) ICD Code: R65.10 Status: Acute (6) Diabetes mellitus ICD Code: E11.9 Status: Chronic Assessment and Plan 1. Abdominal pain, diarrhea: Imaging shows ileus. Nausea and vomiting have improved. Continue IV fluids. Clear liquid diet. Continue Flagyl. Appreciate gastroenterology recommendations. C. difficile negative. May need endoscopy if pain does not improve. 2. SIRS: WBCs are elevated. Lactic acidosis resolved. 3. Acute kidney injury: Resolved. Resume lisinopril at lower dose. 4. Diabetes mellitus: Newly diagnosed as outpatient. Reported hemoglobin A1c of 6.5 recently. Monitor Accu-Cheks and cover with sliding scale insulin. 5. Hypertension: Stable. Continue home medications. 6. Hypothyroidism: Continue levothyroxine. 7. DVT prophylaxis: SCDs. Problem Qualifiers (1) Nausea & vomiting: Qualified Code: R11.2 - Non-intractable vomiting with nausea, unspecified vomiting type (2) Abdominal pain: Qualified Code: R10.13 - Epigastric pain Bunny Pastrana MD Mar 13, 2017 14:46
[2017-03-13 16:00] VITALS: BP 142/67; PULSE 68; RESP 17; TEMP 98.4; O2SAT 93
--- NOTE | 2017-03-13 16:32 | HHI.GIFU ---
Subjective Remarks Resting in bed. Reports she is having lower abdominal pain/cramping, worsening after she ate soup broth. Reports a couple episodes of diarrhea today. Has nausea not associated with eating, but no vomiting. (Olivia Delgado) Objective Vitals I&O Vital Signs Date Time Temp Pulse Resp B/P Pulse Ox O2 Delivery O2 Flow Rate FiO2 03/13/17 00:00 98.0 63 18 136/63 95 03/12/17 20:00 96.6 68 18 138/65 97 I/O 03/12/17 03/12/17 03/12/17 03/13/17 03/13/17 03/13/17 07:00 15:00 23:00 07:00 15:00 23:00 Intake Total 889 ml 8 ml 844 ml 800 ml Balance 889 ml 8 ml 844 ml 800 ml Intake Oral 240 ml 340 ml IV Total 649 ml 8 ml 504 ml 800 ml # Voids 2 6 # Bowel Movements 1 4 Laboratory Laboratory Tests Test 03/13/17 03/13/17 05:55 06:00 Stool C. difficile Toxin (PCR) NEGATIVE Stl C. difficile Toxin PRESUMPTIVE Epiderm 027 NEGATIVE White Blood Count 16.3 Red Blood Count 5.61 Hemoglobin 12.1 Hematocrit 38.7 Mean Corpuscular Volume 68.9 Mean Corpuscular Hemoglobin 21.6 Mean Corpuscular Hemoglobin 31.3 Concent Red Cell Distribution Width 15.1 Platelet Count 223 Mean Platelet Volume 9.0 Neutrophils (%) (Auto) 73.9 Lymphocytes (%) (Auto) 18.0 Monocytes (%) (Auto) 6.1 Eosinophils (%) (Auto) 1.6 Basophils (%) (Auto) 0.4 Neutrophils # (Auto) 12.0 Lymphocytes # (Auto) 2.9 Monocytes # (Auto) 1.0 Eosinophils # (Auto) 0.3 Basophils # (Auto) 0.1 CBC Comment DIFF FINAL Differential Comment Sodium Level 142 Potassium Level 2.9 Chloride Level 110 Carbon Dioxide Level 21.3 Anion Gap 11 Blood Urea Nitrogen 5 Creatinine 0.76 Estimat Glomerular Filtration 92 Rate Random Glucose 84 Calcium Level 8.4 Date/Time Procedure Status Source Growth 03/13/17 05:55 Cryptosporidium Exam Resulted Stool Stool Pending 03/13/17 05:55 Stool Pus (REENA) - Final Resulted Stool Stool NO WBC'S SEEN 8/13/17 05:55 Giardia Antigen (REENA) Resulted Stool Stool Pending 03/11/17 17:37 Urine Culture - Final Complete Urine Clean Catch 50-100,000 CFU/ML MIXED CAIT... 03/11/17 17:15 Aerobic Blood Culture - Preliminary Resulted Blood Peripheral NO GROWTH IN 2 DAYS 03/11/17 17:15 Anaerobic Blood Culture - Preliminary Resulted Blood Peripheral NO GROWTH IN 2 DAYS Imaging Last Impressions Chest X-Ray 03/11/17 1640 Signed Impressions: Service Date/Time: Saturday, March 11, 2017 16:42 - CONCLUSION: 1. Minimal atelectatic changes in the left base. Lungs are otherwise clear. 2. Compensated cardiomegaly. David Reyes MD Abdomen/Pelvis CT 03/11/17 1637 Signed Impressions: Service Date/Time: Saturday, March 11, 2017 17:07 - CONCLUSION: 1. Mild proximal small bowel ileus without specific evidence of obstructing process. 2. Small pericardial effusion. 3. Mild biliary prominence status post cholecystectomy; not unexpected. Daljit Lew MD Physical Exam HEENT: PERRLA; normocephalic; atraumatic; no jaundice. NECK: Neck is supple, no JVD, no lymphadenopathy. CHEST: CTA CARDIAC: RRR with no murmur gallop or rubs. ABDOMEN: Soft, nondistended, diffuse abdominal tenderness; no hepatosplenomegaly; bowel sounds active. EXTREMITIES: No clubbing, cyanosis, or edema. SKIN: Normal; no rash; no jaundice. QM CONSULTANT: No focal deficits; alert and oriented x 3 (Olivia Delgado WET END HELPER) Assessment and Plan Plan ASSESSMENT - Abdominal pain, diarrhea, nausea. Reports increased abdominal pain after eating. Continues to have diarrhea. + Nausea, not associated with food. Abdomen/Pelvis CT 03/11/17--1. Mild proximal small bowel ileus without specific evidence of obstructing process. 2. Small pericardial effusion. 3. Mild biliary prominence status post cholecystectomy; not unexpected. C diff negative. Stool studies: Cryptosporidium pending, stool pus-no WBCs seen, Giardia pending. IV fluids. Flagyl. WBC 16.3 today. - Hypokalemia, K 2.9 today, s/p IV potassium per attending - Diabetes Mellitus, new diagnosis. Per attending - Hypertension, per attending - Hypothyroidism, per attending PLAN - Await stool studies - Consider endoscopy if no improvement in abdominal pain - Clear liquid diet - Monitor abdominal pain - IV fluids - Continue Flagyl - Anti-emetics - Supportive care - Further recommendations to follow based on results of above. Patient seen and examined by Dr. Fagan and myself and this note is written on his behalf. (Olivia Delgado) Physician Comments Patient seen and examined Agree with above Continue with current supportive care Monitor labs Patient still having pain and diarrhea we will proceed with an EGD and a colonoscopy (Jeromy Palacio MD) Olivia Delgado Mar 13, 2017 16:31 Jeromy Palacio MD Mar 13, 2017 18:15
[2017-03-13] MEDS ORDERED: PEG (High)/E-LYTE SOLN 4000 ML BTL PO ONE (18:15)
[2017-03-13 20:00] VITALS: BP 121/74; PULSE 71; RESP 17; TEMP 98.4; O2SAT 97
[2017-03-13] MEDS: ONDANSETRON HCL 4 MG/2 ML VIAL IV PUSH PRN (20:34)
[2017-03-13] MEDS: ATORVASTATIN 80 MG TAB PO SCH (20:35)
[2017-03-14] VITALS: BP 127/78; PULSE 79; RESP 17; TEMP 98.7; O2SAT 98
[2017-03-14] MEDS: metroNIDAZOLE 500 MG INJ 100 ML IV SCH ×4 (01:15→23:40)
[2017-03-14] MEDS: MORPHINE SULFATE 4 MG/ML INJ IV PUSH PRN ×3 (01:38→23:39)
[2017-03-14] MEDS ORDERED: LACTATED RINGER'S 1000 ML IV PRN (02:00)
[2017-03-14] MEDS ORDERED: POVIDONE IODINE 5% (ANTISEPSIS KIT) 4 APPLICATIONS EACH NARE PRN (02:00)
[2017-03-14] MEDS ORDERED: CHLORHEXIDINE GLUCONATE 2 % 1 PACK (2 CLOTHS) TOPICAL PRN (02:00)
[2017-03-14] MEDS: PANTOPRAZOLE SODIUM 40 MG VIAL IV PUSH SCH ×2 (04:00→17:32)
[2017-03-14] MEDS: LEVOTHYROXINE SODIUM 50 MCG TAB PO SCH (04:05)
[2017-03-14] MEDS: INSULIN ASPART SUPPLEMENTAL SCALE SQ SCH ×4 (04:14→21:00)
[2017-03-14 06:12] LABS: AUTOMATED NEUTROPHIL # 6.6 TH/MM3 (1.8-7.7); BASOPHIL # 0.1 TH/MM3 (0-0.2); BASOPHIL % 0.6 % (0.0-2.0); EOSINOPHIL # 0.3 TH/MM3 (0-0.4); EOSINOPHIL % 2.7 % (0.0-4.0); HEMATOCRIT 39.3 % (35.0-46.0); HEMO FLAGS DIFF FINAL; LYMPH % 27.8 % (9.0-44.0); MEAN CELL VOLUME 69.9 FL (80.0-100.0); MEAN CORPUSCULAR HEMOGLOBIN 21.9 PG (27.0-34.0); MEAN CORPUSCULAR HGB CONC 31.3 % (32.0-36.0); MONO % 8.7 % (0.0-8.0); NEUT % 60.2 % (16.0-70.0); PLATELET COUNT 212 TH/MM3 (150-450); RED BLOOD COUNT 5.61 MIL/MM3 (4.00-5.30); RED CELL DISTRIBUTION WIDTH 14.8 % (11.6-17.2); WHITE BLOOD COUNT 10.9 TH/MM3 (4.0-11.0)
[2017-03-14 06:49] LABS: BICARBONATE 25.4 MEQ/L (21.0-32.0)
[2017-03-14 07:00] LABS: POTASSIUM 2.9 MEQ/L (3.5-5.1)
[2017-03-14 08:00] VITALS: BP 146/67; PULSE 73; RESP 16; TEMP 98.1; O2SAT 94
[2017-03-14] MEDS: UMECLIDINIUM 62.5 MCG/VILANTEROL 25 MCG INHALER INH SCH ×2 (08:49→21:00)
[2017-03-14] MEDS: METOPROLOL TARTRATE 25 MG TAB PO SCH ×2 (08:49→21:00)
[2017-03-14] MEDS: LISINOPRIL 10 MG TAB PO SCH (08:49)
[2017-03-14] MEDS: POTASSIUM CHLOR 20 MEQ PREMIX 100 ML IV SCH ×2 (08:49→10:42)
[2017-03-14] MEDS: NS + KCL 20 MEQ INJ 1,000 ML IV SCH ×2 (08:50→18:00)
[2017-03-14 09:45] VITALS: O2SAT 92; O2SAT 93
[2017-03-14 12:00] VITALS: BP 129/61; PULSE 70; RESP 18; TEMP 98.2; O2SAT 92
[2017-03-14] MEDS ORDERED: PROPOFOL 200 MG/20 ML AMP IV ONE (14:40)
--- NOTE | 2017-03-14 14:56 | PD.PROCEDR ---
GI Procedure REFERRING PHYSICIAN Kyler MCCORMACK PERFORMED EGD with biopsy followed by colonoscopy with biopsy INDICATION FOR PROCEDURE Diarrhea abdominal pain nausea PROCEDURE: The procedure, risks and benefits were discussed with Ms. Ramos and informed consent was obtained. Anesthesia sedated her with Diprivan. She was placed in the left lateral decubitus position. EGD: The Pentax videoscope was introduced through the oropharynx and advanced to the second portion of the duodenum under direct visualization. Retroflexion was performed in the stomach. FINDINGS: The esophagus this appeared to be unremarkable and normal limits the Stomach there was some patchy erythema in the antrum but no ulcerations or erosions the rest of the gastric mucosa was unremarkable antral biopsies were taken The duodenum this was normal and random biopsies were taken Colonoscopy: The Pentax videoscope was introduced through the rectum and advanced to cecum where the ileocecal valve and appendiceal orifice were identified. Retroflexion was performed in the rectum. Colonic prep was fair FINDINGS: As the scope was slowly withdrawn colonic mucosa was carefully inspected colonic withdrawal time greater than 6 minutes the patient was noted to have a small polyp in the descending colon this was excised using cold biopsy forceps otherwise colonic mucosa was normal random biopsies were taken from the ascending and descending colon. retroflexion and rectal examination were also unremarkable ESTIMATED BLOOD LOSS: None SPECIMENS REMOVED: Gastric, duodenal, ascending, descending colon biopsies COMPLICATIONS: None IMPRESSION: Mild gastritis Colon polyp PLAN: Advance diet Await biopsies Okay for discharge from a GI standpoint Follow-up with GI post discharge High-fiber diet and probiotics Colonoscopy in 1 year Jeromy Palacio MD Mar 14, 2017 14:56
[2017-03-14 16:00] VITALS: BP 143/67; PULSE 73; RESP 19; TEMP 97.3; O2SAT 94
--- NOTE | 2017-03-14 16:04 | HHI.PR ---
Subjective Remarks Follow-up abdominal pain. Patient just returned from EGD/colonoscopy. She reports abdominal discomfort secondary to gas. No nausea or vomiting today. Objective Vitals Vital Signs Date Time Temp Pulse Resp B/P Pulse Ox O2 Delivery O2 Flow Rate FiO2 03/14/17 14:55 77 18 131/69 97 03/14/17 12:00 98.2 70 18 129/61 92 03/14/17 09:45 93 03/14/17 08:00 98.1 73 16 146/67 94 03/14/17 00:00 98.7 79 17 127/78 98 03/13/17 20:00 98.4 71 17 121/74 97 I/O 03/13/17 03/13/17 03/13/17 03/14/17 03/14/17 03/14/17 07:00 15:00 23:00 07:00 15:00 23:00 Intake Total 800 ml 270 ml 1609 ml 203 ml 0 ml Output Total 300 ml Balance 800 ml 270 ml 1609 ml 203 ml -300 ml Intake Oral 270 ml 240 ml 0 ml 0 ml IV Total 800 ml 1369 ml 203 ml Output Urine Total 300 ml # Voids 3 3 5 1 # Bowel Movements 1 3 5 0 Result Diagram: 03/14/17 0514 03/14/17 0559 Imaging Last Impressions Chest X-Ray 03/11/17 1640 Signed Impressions: Service Date/Time: Saturday, March 11, 2017 16:42 - CONCLUSION: 1. Minimal atelectatic changes in the left base. Lungs are otherwise clear. 2. Compensated cardiomegaly. David Reyes MD Abdomen/Pelvis CT 03/11/17 1637 Signed Impressions: Service Date/Time: Saturday, March 11, 2017 17:07 - CONCLUSION: 1. Mild proximal small bowel ileus without specific evidence of obstructing process. 2. Small pericardial effusion. 3. Mild biliary prominence status post cholecystectomy; not unexpected. Daljit Lew MD Objective Remarks General: No acute distress. Heart: Regular rate and rhythm. No murmur. Lungs: Clear to auscultation bilaterally. No wheezes, rales, or rhonchi. Breathing is nonlabored. Abdomen: Soft, nontender, nondistended. Extremities: No lower extremity edema. Psych: Alert and oriented. Procedures None Urinary Catheter: No Vascular Central Line Catheter: No A/P Problem List: (1) Nausea & vomiting ICD Code: R11.2 Status: Acute (2) Abdominal pain ICD Code: R10.9 Status: Acute (3) DAE (acute kidney injury) ICD Code: N17.9 Status: Acute (4) HTN (hypertension) ICD Code: I10 Status: Acute (5) SIRS (systemic inflammatory response syndrome) ICD Code: R65.10 Status: Acute (6) Diabetes mellitus ICD Code: E11.9 Status: Chronic Assessment and Plan 1. Abdominal pain, diarrhea: Imaging shows ileus. Nausea and vomiting have improved. Continue IV fluids. Appreciate gastroenterology recommendations. Advanced to heart healthy by GI. Continue Flagyl. C. difficile negative. Status post EGD/colonoscopy. 2. SIRS: WBCs are now within normal limits. Lactic acidosis resolved. 3. Acute kidney injury: Resolved. Continue lisinopril at lower dose. 4. Diabetes mellitus: Newly diagnosed as outpatient. Reported hemoglobin A1c of 6.5 recently. Monitor Accu-Cheks and cover with sliding scale insulin. 5. Hypertension: Stable. Continue home medications. 6. Hypothyroidism: Continue levothyroxine. 7. Hypokalemia: Supplement potassium. Recheck labs in the morning. 8. DVT prophylaxis: SCDs. Discharge Planning Possible discharge home tomorrow pending further improvement. Problem Qualifiers (1) Nausea & vomiting: Qualified Code: R11.2 - Non-intractable vomiting with nausea, unspecified vomiting type (2) Abdominal pain: Qualified Code: R10.13 - Epigastric pain Bunny Pastrana MD Mar 14, 2017 16:04
[2017-03-14 20:00] VITALS: BP 137/68; PULSE 89; RESP 20; TEMP 99.3; O2SAT 92
[2017-03-14] MEDS: ATORVASTATIN 80 MG TAB PO SCH (21:00)
[2017-03-15] VITALS: BP 134/65; PULSE 83; RESP 22; TEMP 99.3; O2SAT 93
[2017-03-15 00:45] LABS: POTASSIUM 3.1 MEQ/L (3.5-5.1)
[2017-03-15] MEDS: NS + KCL 20 MEQ INJ 1,000 ML IV SCH ×2 (04:00→12:40)
[2017-03-15] MEDS: MORPHINE SULFATE 4 MG/ML INJ IV PUSH PRN ×3 (05:46→16:42)
[2017-03-15] MEDS: PANTOPRAZOLE SODIUM 40 MG VIAL IV PUSH SCH ×2 (05:46→16:46)
[2017-03-15] MEDS: LEVOTHYROXINE SODIUM 50 MCG TAB PO SCH (05:51)
[2017-03-15] MEDS: INSULIN ASPART SUPPLEMENTAL SCALE SQ SCH ×3 (05:52→16:00)
[2017-03-15 06:05] LABS: HEMATOCRIT 41.1 % (35.0-46.0); MEAN CELL VOLUME 70.3 FL (80.0-100.0); MEAN CORPUSCULAR HGB CONC 31.4 % (32.0-36.0); PLATELET COUNT 227 TH/MM3 (150-450); RED BLOOD COUNT 5.85 MIL/MM3 (4.00-5.30); RED CELL DISTRIBUTION WIDTH 14.9 % (11.6-17.2); REVIEW FLAG FINAL; WHITE BLOOD COUNT 10.1 TH/MM3 (4.0-11.0)
[2017-03-15 06:25] LABS: ALT (GPT) 30 U/L (10-53); ANION GAP 9 MEQ/L (5-15); AST (GOT) 30 U/L (15-37); BICARBONATE 24.2 MEQ/L (21.0-32.0); BLOOD UREA NITROGEN 4 MG/DL (7-18); CHLORIDE 109 MEQ/L (98-107); GLOMERULAR FILTRATION RATE 86 ML/MIN (>89); SODIUM (NA) 142 MEQ/L (136-145)
[2017-03-15 06:28] LABS: ALKALINE PHOSPHATASE 81 U/L (45-117); TOTAL BILIRUBIN ADULT 0.9 MG/DL (0.2-1.0)
[2017-03-15 08:00] VITALS: BP 138/65; PULSE 83; RESP 16; TEMP 99; O2SAT 92
[2017-03-15] MEDS ORDERED: POTASSIUM CHLORIDE 10 MEQ CONTROLLED RELEASE TAB PO ONE (08:00)
[2017-03-15] MEDS ORDERED: POTASSIUM CHLOR 20 MEQ PREMIX 100 ML IV ONE (08:00)
[2017-03-15] MEDS: metroNIDAZOLE 500 MG INJ 100 ML IV SCH (09:25)
[2017-03-15] MEDS: METOPROLOL TARTRATE 25 MG TAB PO SCH (09:26)
[2017-03-15] MEDS: LISINOPRIL 10 MG TAB PO SCH (09:26)
[2017-03-15] MEDS: UMECLIDINIUM 62.5 MCG/VILANTEROL 25 MCG INHALER INH SCH (09:27)
--- NOTE | 2017-03-15 09:56 | HHI.GIFU ---
Subjective Remarks Up in chair, eating breakfast. Mild abdominal discomfort with meals. No n/v. (Nona Buckley) Objective Vitals I&O Vital Signs Date Time Temp Pulse Resp B/P Pulse Ox O2 Delivery O2 Flow Rate FiO2 03/15/17 08:00 99.0 83 16 138/65 92 03/15/17 00:00 99.3 83 22 134/65 93 03/14/17 20:00 99.3 89 20 137/68 92 03/14/17 16:00 97.3 73 19 143/67 94 03/14/17 14:55 77 18 131/69 97 03/14/17 12:00 98.2 70 18 129/61 92 I/O 03/14/17 03/14/17 03/14/17 03/15/17 03/15/17 03/15/17 06:59 14:59 22:59 06:59 14:59 22:59 Intake Total 203 ml 0 ml 520 ml 857 ml Output Total 300 ml 300 ml Balance 203 ml -300 ml 220 ml 857 ml Intake Oral 0 ml 0 ml 320 ml 240 ml IV Total 203 ml 200 ml 617 ml Output Urine Total 300 ml 300 ml # Voids 5 1 2 # Bowel Movements 5 0 0 1 Laboratory Laboratory Tests Test 03/14/17 03/15/17 23:04 05:34 Sodium Level 140 142 Potassium Level 3.1 3.0 Chloride Level 108 109 Carbon Dioxide Level 22.0 24.2 Anion Gap 10 9 Blood Urea Nitrogen 4 4 Creatinine 0.77 0.81 Estimat Glomerular Filtration 91 86 Rate Random Glucose 85 85 Calcium Level 8.8 8.5 White Blood Count 10.1 Red Blood Count 5.85 Hemoglobin 12.9 Hematocrit 41.1 Mean Corpuscular Volume 70.3 Mean Corpuscular Hemoglobin 22.0 Mean Corpuscular Hemoglobin 31.4 Concent Red Cell Distribution Width 14.9 Platelet Count 227 Mean Platelet Volume 8.6 Total Bilirubin 0.9 Aspartate Amino Transf 30 (AST/SGOT) Alanine Aminotransferase 30 (ALT/SGPT) Alkaline Phosphatase 81 Total Protein 7.8 Albumin 3.5 Date/Time Procedure Status Source Growth 03/13/17 05:55 Cryptosporidium Exam - Final Complete Stool Stool NEGATIVE - NO CRYPTOSPORIDIUM ANTIGEN... 03/13/17 05:55 Stool Pus (REENA) - Final Complete Stool Stool NO WBC'S SEEN 03/13/17 05:55 Giardia Antigen (REENA) - Final Complete Stool Stool NEGATIVE - NO GIARDIA ANTIGEN DETECTE... 03/11/17 17:37 Urine Culture - Final Complete Urine Clean Catch 50-100,000 CFU/ML MIXED CAIT... 03/11/17 17:15 Aerobic Blood Culture - Preliminary Resulted Blood Peripheral NO GROWTH IN 3 DAYS 03/11/17 17:15 Anaerobic Blood Culture - Preliminary Resulted Blood Peripheral NO GROWTH IN 3 DAYS Imaging Last Impressions Chest X-Ray 03/11/17 1640 Signed Impressions: Service Date/Time: Saturday, March 11, 2017 16:42 - CONCLUSION: 1. Minimal atelectatic changes in the left base. Lungs are otherwise clear. 2. Compensated cardiomegaly. David Reyes MD Abdomen/Pelvis CT 03/11/17 1637 Signed Impressions: Service Date/Time: Saturday, March 11, 2017 17:07 - CONCLUSION: 1. Mild proximal small bowel ileus without specific evidence of obstructing process. 2. Small pericardial effusion. 3. Mild biliary prominence status post cholecystectomy; not unexpected. Daljit Lew MD Physical Exam HEENT: Normocephalic; atraumatic; no jaundice. NECK: Neck is supple, no JVD, no lymphadenopathy. CHEST: CTA CARDIAC: RRR with no murmur gallop or rubs. ABDOMEN: Soft, nondistended, mild epigastric tenderness; no hepatosplenomegaly ; bowel sounds active. EXTREMITIES: No clubbing, cyanosis, or edema. SKIN: Normal; no rash; no jaundice. EVAPORATOR OPERATOR: No focal deficits; alert and oriented x 3 (Nona Buckley [facility]) Assessment and Plan Plan ASSESSMENT - Abdominal pain, diarrhea, nausea. Abdomen/Pelvis CT 03/11/17----> 1. Mild proximal small bowel ileus without specific evidence of obstructing process. 2. Small pericardial effusion. 3. Mild biliary prominence status post cholecystectomy; not unexpected. C diff negative. Stool studies negative. S/P EGD/Colonoscopy (03/14/17)---> Mild gastritis, Colon polyp. Pathology pending. Tolerating diet. Mild epigastric discomfort with meals, but much improved. Protonix. - Hypokalemia, K+ 3.0. Replacement per attending. - Diabetes Mellitus, new diagnosis, HTN, Hypothyroidism per attending. PLAN - MATA- High fiber diet - Await pathology - PPI - Probiotics - Okay to d/c home from GI standpoint - GI will sign off, please reconsult as needed - Patient seen and examined by Dr. Fagan and myself and this note is written on his behalf. (Nona Buckley) Physician Comments Pathology is noted patient appears to have colitis possibly infectious versus inflammatory She did not have much in the way of diarrhea today Okay for discharge to follow-up with GI at which time we'll determine the need for further evaluation and treatment or not (Jeromy Palacio MD) Nona Buckley Mar 15, 2017 09:56 Jeromy Palacio MD Mar 15, 2017 18:11
[2017-03-15 10:27] VITALS: O2SAT 95
[2017-03-15 12:00] VITALS: BP 106/56; PULSE 71; RESP 17; TEMP 98.4; O2SAT 94
[2017-03-15] MEDS: LACTOBACILLUS ACIDOPHILUS TAB PO SCH ×2 (12:40→16:43)
[2017-03-15] MEDS ORDERED: LACT PO (13:58)
[2017-03-15] MEDS ORDERED: PANT40TA3 PO (13:58)
[2017-03-15] MEDS ORDERED: LISI10TA3 PO (13:58)
--- NOTE | 2017-03-15 13:59 | HHI.DCPOC ---
Discharge Care Plan Diagnosis: (1) DAE (acute kidney injury) (2) SIRS (systemic inflammatory response syndrome) (3) Nausea & vomiting (4) HTN (hypertension) (5) Abdominal pain (6) Diabetes mellitus (7) Hypokalemia Goals to Promote Your Health * To prevent worsening of your condition and complications * To maintain your health at the optimal level Directions to Meet Your Goals Take your medications as prescribed Follow your dietary instruction Follow activity as directed Keep your appointments as scheduled Take your immunizations and boosters as scheduled If your symptoms worsen call your PCP, if no PCP go to Urgent Care Center or Emergency Room Smoking is Dangerous to Your Health. Avoid second hand smoke Call the 24-hour hour crisis hotline for domestic abuse at Bunny Pastrana MD Mar 15, 2017 13:59
--- NOTE | 2017-03-15 14:01 | HHI.DS ---
Discharge Summary Admission Date Mar 11, 2017 at 17:24 Discharge Date: Mar 15, 2017 Admitting Diagnosis acute abdominal pain, sepsis, N/V (1) Nausea & vomiting ICD Code: R11.2 (2) Abdominal pain ICD Code: R10.9 (3) DAE (acute kidney injury) ICD Code: N17.9 (4) HTN (hypertension) ICD Code: I10 (5) SIRS (systemic inflammatory response syndrome) ICD Code: R65.10 (6) Diabetes mellitus ICD Code: E11.9 Procedures None Brief History - From Admission Written by Raúl Almeida, acting as scribe for Dr. Pastrana on 03/11/17 at 18:21. 66-year-old female with a past medical history of CAD, HTN, HLD, hypothyroidism , DM, LUIS, spinal stenosis who presented for nausea, vomiting, and diarrhea. Patient states that for the past 5 days she's been having diarrhea. She states the diarrhea is significantly worse 2 days ago. She's had more than 10 episodes of diarrhea yesterday. She states that she also been having coughing where she was coughing up some. She states the coughing progressed to vomiting 2 days ago. The past 2 days she's been having epigastric pain. When asked if she has any chest pain, she states she is having upper abdominal pain below both of her breasts, denies any specific chest pain or shortness of breath. The patient states that today she felt weak like she was going to pass out. She 's been having decreased urine output. She feels like some of her symptoms may be related to it being hot outside and her having no air conditioning. Patient' s abdominal pain is worse whenever she coughs. She has been having hand cramping. She has been having decreased urine output. The patient states her nausea is currently feeling improved after receiving medication in the ED. CBC/BMP: 03/15/17 0534 03/15/17 0534 Significant Findings Laboratory Tests Test 03/13/17 03/14/17 03/14/17 03/14/17 06:00 05:14 05:59 23:04 White Blood Count 16.3 TH/MM3 (4.0-11.0) Red Blood Count 5.61 MIL/MM3 5.61 MIL/MM3 (4.00-5.30) (4.00-5.30) Mean Corpuscular Volume 68.9 FL 69.9 FL (80.0-100.0) (80.0-100.0) Mean Corpuscular Hemoglobin 21.6 PG 21.9 PG (27.0-34.0) (27.0-34.0) Mean Corpuscular Hemoglobin 31.3 % 31.3 % Concent (32.0-36.0) (32.0-36.0) Neutrophils (%) (Auto) 73.9 % (16.0-70.0) Neutrophils # (Auto) 12.0 TH/MM3 (1.8-7.7) Monocytes # (Auto) 1.0 TH/MM3 (0-0.9) Potassium Level 2.9 MEQ/L 2.9 MEQ/L 3.1 MEQ/L (3.5-5.1) (3.5-5.1) (3.5-5.1) Chloride Level 110 MEQ/L 108 MEQ/L 108 MEQ/L (98-107) (98-107) (98-107) Blood Urea Nitrogen 5 MG/DL (7-18) 3 MG/DL (7-18) 4 MG/DL (7-18) Calcium Level 8.4 MG/DL 8.3 MG/DL (8.5-10.1) (8.5-10.1) Monocytes (%) (Auto) 8.7 % (0.0-8.0) Test 03/15/17 05:34 Red Blood Count 5.85 MIL/MM3 (4.00-5.30) Mean Corpuscular Volume 70.3 FL (80.0-100.0) Mean Corpuscular Hemoglobin 22.0 PG (27.0-34.0) Mean Corpuscular Hemoglobin 31.4 % Concent (32.0-36.0) Potassium Level 3.0 MEQ/L (3.5-5.1) Chloride Level 109 MEQ/L (98-107) Blood Urea Nitrogen 4 MG/DL (7-18) Estimat Glomerular Filtration 86 ML/MIN (>89) Rate Imaging Last Impressions Chest X-Ray 03/11/17 1640 Signed Impressions: Service Date/Time: Saturday, March 11, 2017 16:42 - CONCLUSION: 1. Minimal atelectatic changes in the left base. Lungs are otherwise clear. 2. Compensated cardiomegaly. David Reyes MD Abdomen/Pelvis CT 03/11/17 1637 Signed Impressions: Service Date/Time: Saturday, March 11, 2017 17:07 - CONCLUSION: 1. Mild proximal small bowel ileus without specific evidence of obstructing process. 2. Small pericardial effusion. 3. Mild biliary prominence status post cholecystectomy; not unexpected. Daljit Lew MD PE at Discharge General: No acute distress. Heart: Regular rate and rhythm. No murmur. Lungs: Clear to auscultation bilaterally. No wheezes, rales, or rhonchi. Breathing is nonlabored. Abdomen: Soft, nontender, nondistended. Extremities: No lower extremity edema. Psych: Alert and oriented. Pt update on day of discharge The patient has no complaints at this time. She is tolerating a heart healthy diet. Go home. Abdominal pain has resolved. She did have some abdominal discomfort following breakfast, that resolved quickly and she states that she will choose different foods. Hospital Course The patient was admitted for evaluation and management of abdominal pain, nausea , vomiting, diarrhea. She was seen on imaging to have an ileus. She was placed on IV fluids for dehydration. Gastroenterology was consulted. She was continued on Flagyl. EGD and colonoscopy were done. One colon polyp was removed. She was also found to have mild gastritis. Her diet was advanced. Her symptoms improved significantly. She was cleared for discharge by gastroenterology. Her potassium was low and supplemented during the hospitalization. She was advised to follow- up with her primary care physician for further monitoring of the potassium level. Pt Condition on Discharge: Stable Discharge Disposition: Discharge Home Discharge Time: > 30 minutes Discharge Instructions DIET: Follow Instructions for: Heart Healthy Diet, Diabetic Diet Activities you can perform: Regular-No Restrictions Follow up Referrals: Gastroenterology - 3 Weeks @ [facility] PCP Follow-up - 3-5 Days New Medications: Pantoprazole (Pantoprazole) 40 Mg Tab 40 MG PO BID Reflux #60 Ref 0 TAB Lactobacillus Acidophilus (Acidophilus/l-Sporogenes) 1 Tab Tab 1 TAB PO TID probiotic #60 Ref 0 TAB Lisinopril (Lisinopril) 10 Mg Tab 10 MG PO DAILY Blood Pressure Management #30 Ref 0 TAB Continued Medications: Amlodipine (Amlodipine) 10 Mg Tab 10 MG PO DAILY Blood Pressure Management #30 Ref 0 TAB Atorvastatin (Atorvastatin) 80 Mg Tab 80 MG PO HS Cholesterol Management #30 Ref 0 TAB Hydrocodone-Acetaminophen ([place]) 10-325 Mg Tab 1 TAB PO TID PRN PAIN Ref 0 TAB Levothyroxine (Levothyroxine) 50 Mcg Tab 50 MCG PO DAILY Thyroid #30 Ref 0 TAB Metoprolol Tartrate (Metoprolol Tartrate) 25 Mg Tab 25 MG PO Q12HR #60 Ref 0 TAB Nitroglycerin SL (Nitroglycerin SL) 0.4 Mg Subl 0.4 MG SL DIRECTED ONE TABLET UNDER THE TONGUE NEEDED FOR CHEST PAIN, MAY REPEAT EVERY FIVE MINUTES FOR A TOTAL OF 3 DOSES OR CALL 911 IF NO RELIEF PRN CHEST PAIN #100 Ref 0 TAB.SL Umeclidinium-Vilanterol Inh (Anoro Ellipta Inh) 62.5-25 Mcg/Act Aero 1 PUFF INH DAILY @ 1200 COPD #1 Ref 0 INHALER Discontinued Medications: Lisinopril (Lisinopril) 20 Mg Tab 20 MG PO BID #30 Ref 0 TAB Bunny Pastrana MD Mar 15, 2017 14:01
[2017-03-15 16:00] VITALS: BP 117/62; PULSE 71; RESP 18; TEMP 98.3; O2SAT 96
== END 2017-03-15 18:05 | disposition home or self-care (01) | DRG 389 ==
LOC: NEPE 13:21 → NEDA 17:24 → N07B 19:59
PROVIDERS: ADMIT Family Medicine; ATTEND Family Medicine
PROC: 0DBM8ZZ Excision of Descending Colon, Via Natural or Artificial Opening Endoscopic (ICD-10-PCS; 2017-03-14)
PROC: 0DBK8ZX Excision of Ascending Colon, Via Natural or Artificial Opening Endoscopic, Diagnostic (ICD-10-PCS; 2017-03-14)
PROC: 0DBM8ZX Excision of Descending Colon, Via Natural or Artificial Opening Endoscopic, Diagnostic (ICD-10-PCS; 2017-03-14)
PROC: 0DB98ZX Excision of Duodenum, Via Natural or Artificial Opening Endoscopic, Diagnostic (ICD-10-PCS; principal; 2017-03-14 13:32)
PROC: 0DB68ZX Excision of Stomach, Via Natural or Artificial Opening Endoscopic, Diagnostic (ICD-10-PCS; 2017-03-14 13:32)
DX: K56.7 Ileus, unspecified (principal); I31.3 Pericardial effusion (noninflammatory); N17.9 Acute kidney failure, unspecified; E87.2 Acidosis; R65.10 Systemic inflammatory response syndrome (SIRS) of non-infectious origin without acute organ dysfunction; I11.9 Hypertensive heart disease without heart failure; E86.0 Dehydration; K52.9 Noninfective gastroenteritis and colitis, unspecified; E03.9 Hypothyroidism, unspecified; E11.9 Type 2 diabetes mellitus without complications; E78.5 Hyperlipidemia, unspecified; D12.4 Benign neoplasm of descending colon; E87.6 Hypokalemia; I25.10 Atherosclerotic heart disease of native coronary artery without angina pectoris; I25.2 Old myocardial infarction; J44.9 Chronic obstructive pulmonary disease, unspecified; K29.70 Gastritis, unspecified, without bleeding; Z95.5 Presence of coronary angioplasty implant and graft; F17.200 Nicotine dependence, unspecified, uncomplicated
CPT/HCPCS: 71010; 71020; 74177; 76937; 80048; 80053; 81001; 82550; 82552; 82948; 83605; 83690; 83735; 84484; 85025; 85027; 85610; 85730; 87040; 87086; 87205; 87328; 87329; 87493; 88305; 88312; 93005; 94150; 96361; 96374; 96375; C9113; J1815; J2270; J2405; J3370; J3480; J7030; J7050; Q9967